=== PATIENT | female | born 1945 | race American Indian/Alaskan Native ===

== ENCOUNTER 2016-11-01 06:25 | Day surgery (SDC) | payer MEDICARE ==
[2016-11-01] MEDS ORDERED: NACL 0.9% 500 ML 500 ML IV SCH (08:00)
[2016-11-01] MEDS ORDERED: ECOTRIN PO ONE (08:00)
[2016-11-01] MEDS ORDERED: XYLOCAINE 2% INFILTRATI ONE (08:26)
[2016-11-01] MEDS ORDERED: NITROGLYCERIN SYRINGE 0 ML ONE (08:26)
[2016-11-01] MEDS ORDERED: CALAN ONE (08:26)
[2016-11-01] MEDS ORDERED: HEPARIN 10,000 UNITS/10 ML ONE (08:26)
[2016-11-01] MEDS ORDERED: HEPARIN/NS 5000 UNIT/500ML(CATH LAB) 1,000 ML IR ONE (08:26)
[2016-11-01] MEDS: VERSED ONE ×4 (09:04→10:47)
[2016-11-01] MEDS: SUBLIMAZE ONE ×2 (09:06→09:08)
[2016-11-01] MEDS ORDERED: DILAUDID IV ONE (13:08)
[2016-11-01] MEDS ORDERED: ZOFRAN IV ONE ×2 (14:00→20:00)
--- NOTE | 2016-11-01 15:07 | Short Stay Summary ---
Short Stay Documentation Date of service: 11/01/16 - History H&P: obtained from office - Allergies and Medications Current Medications: Allergies No Known Allergies Allergy (Verified 11/01/16 07:42) Home Medications Medication Instructions Recorded Confirmed Last Taken Type Aspirin [Aspirin BABY CHEW TAB] 81 mg PO DAILY 11/01/16 11/01/16 10/31/16 History 81mg Enoxaparin [Lovenox] 60 mg SQ Q12H 11/01/16 11/01/16 11/01/16 07:00 History 60mg ISOSORBIDE MONOnitrate [Imdur ER] 120 mg PO QDAY 11/01/16 11/01/16 10/31/16 History 120mg Metoprolol [Lopressor TAB] 25 mg PO BID 11/01/16 11/01/16 10/31/16 History 25mg Simvastatin [Zocor TAB] 40 mg PO HS 11/01/16 11/01/16 10/31/16 History Warfarin [Coumadin] 5 mg PO DAILY 11/01/16 11/01/16 10/27/16 History 5mg Active Medications Sodium Chloride (Nacl 0.9% 500 Ml) 500 mls @ 50 mls/hr IV DIRECT ARVIND Stop: 11/01/16 17:59 Last Admin: 11/01/16 08:22 Dose: 50 mls/hr - Brief post op/procedure progress note Date of procedure: 11/01/16 Pre-op diagnosis: chest pain Post-op diagnosis: same Procedure: C - see cath report Anesthesia: local Estimated blood loss: none Pathology: none Condition: stable - Disposition Condition at discharge: Stable Disposition: [id number] TO HOME OR SELFCARE - Discharge Diagnoses (1) Chest pain Status: Chronic Qualifiers: Chest pain type: C Ischemic chest pain type: I (2) Abnormal stress test Status: Chronic (3) CAD (coronary artery disease) Status: Acute Qualifiers: Coronary Disease-Associated Artery/Lesion type: C [place] vs. transplanted heart: N Associated angina: A (4) Hx of CABG Status: Acute Short Stay Discharge Plan Activity: advance as tolerated Diet: low fat, low cholesterol, low salt Wound: open to air, keep clean and dry Follow up with: XANDER HUBER MD [Staff Physician] - 7 Days Forms: CardCath PCI D/C Instructions
[2016-11-01 19:50] VITALS: BP 157/91
[2016-11-01] MEDS ORDERED: NACL 0.9% 500 ML 500 ML IV ONE (20:00)
--- NOTE | 2016-11-27 15:03 | Cardiac Catherization Report ---
CARDIAC CATHETERIZATION INDICATION FOR PROCEDURE: The patient is a 71-year-old female being followed by Dr. de la vega for chest pain and was noted to have mild ischemia on the treadmill test. The patient has history of aortocoronary bypass surgery done probably in 2012, but postoperatively it appears that the patient has occluded grafts requiring stenting of the distal LAD, stenting of the PDA and stenting of the mid RCA with drug-eluting stents at [facility]. The patient has drug-eluting stent placed in the distal LAD, and also stenosis was noted of the PDA at the junction of the vein graft and PDA and had a drug-eluting stent inserted in mid RCA stent. Presently because of the chest pain and abnormal stress test she is scheduled for cardiac catheterization for definitive diagnosis and treatment. The patient is aware of the procedure, potential complications and alternatives of therapy available. DESCRIPTION OF PROCEDURE: The patient was brought to the catheterization laboratory in a fasting condition. The right groin area was thoroughly cleansed with Betadine solution and sterile drapes were applied. Local anesthesia was given using 2% Xylocaine. The patient was sedated with IV Versed and fentanyl. Subsequently, using 5-Macanese micropuncture needle, right femoral artery access was obtained. A 5-Macanese sheath was introduced. Initially, a 5-Macanese multipurpose catheter was used to obtain the angiograms of the left ventricle using hand injection. Subsequently, JL3.5 catheter was used to obtain the angiograms of the left coronary artery and internal mammary catheter was used to obtain the angiograms of the left internal mammary graft. Left coronary bypass graft and AR1 catheter and multipurpose catheter was used to engage the vein graft to the PDA and marginal branch. At the end of the procedure, catheter and sheath were removed. Good hemostasis was achieved, it is manual. At the end of the procedure, it was decided to perform fractional flow reserve measurement of the RCA. I attempted multiple times because of technical difficulty could not get good pressures and procedure was aborted. At this time, considering the borderline lesions, it was felt that we will try medical therapy and if she continues to have significant chest pain we can reconsider doing the FFR of the RCA and LAD at a later time. Procedure was uncomplicated. No untoward complications were noted. Manual pressure was used to obtain the hemostasis. 1. Left ventriculogram done in CATHERINE projection showed normal sized left ventricle with apical akinesis, however, overall ejection fraction was felt to be normal in the range of 50-55%. 2. Left coronary artery arises normally from left coronary cusp. Mild ostial left main disease noted. LAD shows mild irregularities with patent stent in the distal part. Overall, LAD showed only [id number] disease. The ramus branch shows 80% lesion in the proximal part. However, this is a small caliber vessel,supplying moderate sized anterolateral area of LV. Circumflex artery is 100% occluded before giving rise to any major branches. 3. RCA arises normally from right coronary cusp. There is a 50% stenosis in the mid RCA with a patent stent in the distal part and also occluded stent was noted in the mid PDA. 4. Left internal mammary graft was cannulated, patent in proxima/mid part, distally atretic and nonfunctioning. Saphenous vein graft to the obtuse marginal branch is widely patent without significant disease. Second obtuse marginal itself is without significant disease. 5. Vein graft to the PDA is nonfunctioning. SVG to the LAD/diagonal also is occluded. FINAL IMPRESSION: Normal sized left ventricle with normal contractility, except for apical area of akinesis. Overall, ejection fraction is normal at 50-55%. Left coronary system shows patent LAD with patent stent in the distal LAD, has occluded circumflex artery; however disease protected by a patent vein graft to the second obtuse marginal branch. Ramus branch has 80% lesion; however, this is small caliber vessel. RCA shows moderate 50% lesion in the mid part with patent stent in the distal RCA along with occluded stents in the mid PDA. Considering the above angiographic pictures with failure of the vein grafts in the past including left internal mammary graft, we will continue medical therapy. If the medical therapy fails then we can consider intervention of the RCA/ramus branch. However, it is to be noted the patient has occluded stent in the PDA. The patient tolerated the procedure well. No untoward complications were noted. Findings were explained to the patient and family. They understand. JOB# [id number] JAIRO/JHONY SILVA
== END 2016-11-01 20:35 | disposition home or self-care (01) ==
LOC: OPU 06:25
PROVIDERS: ATTEND Internal Medicine
DX: I25.10 Atherosclerotic heart disease of native coronary artery without angina pectoris (principal); E78.5 Hyperlipidemia, unspecified; D68.61 Antiphospholipid syndrome; D68.59 Other primary thrombophilia; Z79.82 Long term (current) use of aspirin; Z79.899 Other long term (current) drug therapy; Z79.01 Long term (current) use of anticoagulants; Z95.5 Presence of coronary angioplasty implant and graft; Z95.1 Presence of aortocoronary bypass graft; Z98.890 Other specified postprocedural states
CPT/HCPCS: 85347; 93005; 93010; 93459; 93571; 96374; 96375; 96376; C1769; C1887; C1894; J0153; J1170; J1644; J2250; J2405; J3010; J7040; Q9967